=== PATIENT | female | born 1960 | race Caucasian/White ===

== ENCOUNTER → 2016-06-27 | Outpatient (CLI) | payer OTHER ==
[~2016-06-27] MED LIST: ASPIRIN LO-DOSE81 MG PO; CALCIUM CARBON600 MG PO; DEPO-PROVE150 MG/11 IM; FLEXERIL10 MG PO; FOSAMAX70 MG PO; HYDROCODON-ACE1 EAC4 PO; JUICE PLUS PO; LISINOPRIL-HCT1 EAC1 PO; OCUVITE SOFTGE1 EACH PO; THERA-VITE W/ B1 TAB PO
== END | disposition disaster alternative care site (69) ==
LOC: GRAD 07:25
DX: M50.20 Other cervical disc displacement, unspecified cervical region (principal); M54.2 Cervicalgia; M48.02 Spinal stenosis, cervical region; M48.52XD Collapsed vertebra, not elsewhere classified, cervical region, subsequent encounter for fracture with routine healing

== ENCOUNTER 2016-07-13 05:56 | Day surgery (SDC) | payer OTHER ==
[~2016-07-13] VITALS: Ht 165.1 cm; Wt 95.5 kg
--- NOTE | ~2016-07-13 | OR ---
PATIENT'S NAME: MOHSEN [facility] AGE: 56 Y [address] ROOM: [address] [address] LOCATION: [facility] ADMIT DATE: 07/13/2016 OR/Procedure Report DISCHARGE DATE: FAMILY PHYSICIAN: Froy Lin MD ATTENDING PHYSICIAN: Lydia Arzate SURGEON: Lydia Arzate MD BPO SPECIALIST: Catherine Gonzalez. DATE OF PROCEDURE: 07/13/2016 PREOPERATIVE DIAGNOSIS: Cervical spondylosis with radiculopathy. POSTOPERATIVE DIAGNOSIS: Cervical spondylosis with radiculopathy. PROCEDURES PERFORMED: 1. Anterior cervical diskectomy with decompression of neural elements and foraminotomy at C5-6. 2. Anterior cervical diskectomy with decompression of neural elements and foraminotomy at C6-7. 3. Use of structural and morselized allograft bone for fusion at C5-6. 4. Use of structural and morselized allograft bone for fusion at C6-7. 5. Use of [place] Elite plate for plating from C5-C7. ANESTHESIA: General. ANESTHESIA PROVIDER: Zak Roque MD. HISTORY: This patient is a 56-year-old female, who complained of neck and right arm pain. MRI showed a disk herniation compressing the right C6 nerve root. I saw the patient in the clinic and with the duration of her symptoms and the MRI findings, I recommended surgery. The procedure of cervical diskectomy, fusion, and plating was discussed with the patient and her . With their consent, the patient was brought to the operating room for surgery. PROCEDURE IN DETAIL: In the operating room, the patient was placed in a supine position and anesthesia was induced. Her neck was maintained in extension. Her head was secured in a gel donut, and a roll was placed under her shoulders. The incision line was marked out along the right side of the neck, and the whole area was prepped and draped in a sterile fashion. Local anesthesia was infiltrated. The incision was then opened, and hemostasis was achieved. Dissection was carried out until we saw the anterior border of the sternomastoid muscle. Further exploration along the anterior border of the sternomastoid muscle showed the omohyoid muscle. The space between the omohyoid and sternomastoid muscles was then developed using the [employer] handheld retractors to facilitate visualization until we got to the anterior PATIENT'S NAME: MOHSEN [facility] AGE: 56 Y [address] ROOM: [id number] [place] [id number] LOCATION: [facility] ADMIT DATE: 07/13/2016 OR/Procedure Report DISCHARGE DATE: FAMILY PHYSICIAN: Froy Lin MD ATTENDING PHYSICIAN: Lydia Arzate surface of the spine. X-ray was obtained to confirm that we were at the desired levels. The longus colli muscles were dissected off the anterior surface of the spine, and self- retaining [employer] retractors were inserted. Diskectomy was then carried out at C5-C6 and C6-C7. The disk was incised. Pituitary rongeur was used to pull out the disk material. The curette was used to scrape out more disk material. The distraction pins were inserted into C4, C5, and C6 and using these distraction pins, the disk space at each level was opened up even more. This continued until we got down to the dura. The dura was opened, and the posterior osteophytes as well as the rest of the posterior longitudinal ligament were removed. Foraminotomy was carried out. This was done both at C5-6 and C6-7. Having completed the decompression, the adjacent vertebral body surfaces at C5-C6 and C6-C7 were drilled down in preparation for fusion. Appropriate-size pieces of bone grafts were then inserted into each disk space, and we had a very snug fit. Prior to inserting the bone graft, demineralized bone matrix, i.e., morselized allograft bone was inserted into the structural allograft. After the placement, we checked the degree of bone contact and neither bone graft was movable. The plate system was then used to reinforce the fusion, and two plates each were screwed into C5, C6, and C7. Irrigation was used to wash out the debris. Hemostasis was achieved. The retractors were removed. The incision was closed with appropriate suture materials. Dermabond was used to close the skin. I was present and performed every aspect of this procedure and assisted at some stages by operating room nurses. There were no apparent intraoperative complications. Swabs, needles, and instruments were all accounted for the end of the case. Estimated blood loss was 100 mL. There was no reason for blood transfusion. I expect the patient's arm pain to improve after this procedure. MD NEVA VUONG/modl /[id number] d: 07/13/162318 t: 07/14/162039, OPERATIVE SUMMARY
--- NOTE | 2016-07-13 16:26 | NUR ---
Significant Event: PT ALERT AND ORIENTED. UP TO THE FLOOR AT 1200. POST OP VITALS CONT LAST HOURLY AT 1845. TAKES NOROC FOR PAIN. FLEXERIL ALSO GIVEN. TIGAN GIVEN IM THIS AFTERNOON FOR VOMITING. USES IS WELL. NO VOID SINCE ARRIVING. IN THE ROOM Follow up:
--- NOTE | 2016-07-14 04:32 | NUR ---
Significant Event: A/O X 3. IV FLUIDS SALINE LOCKED. TAKING PO WELL. NO NAUSEA. RIGHT ANTERIOR NECK DRSGS DRY-INTACT, ICE BAG ON. HOB ELEVATED FOR COMFORT. C/O SORE THROAT. HURTS TO SWALLOW, NO PROBLEM SWALLOWING. HAD NORCO AT 211 FOR NECK AND RT SHOULDER PAIN RATED 5, LATER AT 2200, 3 RATING. NORCO LAST AT 0107 4 RATING, AT 0200 3 RATING, SLEEPS WELL. BILATERAL CALF PNEUMATICS ON, KNEE HI TEDS HOSE ON. DENIES ANY NUMBNESS-TINGLING OR ARMS PAIN. HANDS GRASPS STRONG EQUAL. MOVES ALL 4 EXTREMITIES WELL. UP WITH ONE ASSIST, GAITBELT, VOIDS IN BR MOD AMOUNT AT 2144, AMBULATED IN HALLS, GOOD TOLERANCE. POSSIBLE HOME TODAY. Follow up:
--- NOTE | 2016-07-14 13:57 | NUR ---
pt given discharge instructions and voices understanding. dressings reviewed and medications reviewed prior to discharge. pian meds given prior to discharge. escorted to the front door by this nurse.
== END 2016-07-14 13:00 | disposition disaster alternative care site (69) ==
LOC: G3N 05:56 → GSDC 05:56 → G3N 12:00 → GSDC 13:00
PROC: 0RG20K0 Fusion of 2 or more Cervical Vertebral Joints with Nonautologous Tissue Substitute, Anterior Approach, Anterior Column, Open Approach (ICD-10-PCS; principal; 2016-07-13)
DX: M47.22 Other spondylosis with radiculopathy, cervical region (principal); M50.10 Cervical disc disorder with radiculopathy, unspecified cervical region; M48.02 Spinal stenosis, cervical region; I10 Essential (primary) hypertension; Z87.891 Personal history of nicotine dependence
CPT/HCPCS: C1713; J0690; J1100; J1170; J2270; J2405; J3250; J7030